=== PATIENT | female | born 1995 | race Caucasian/White ===

== ENCOUNTER 2022-11-03 14:40 | Emergency (ER) | payer OTHER, SELFPAY ==
--- NOTE | ~2022-11-03 | XR_ITS ---
XR ankle RT min 3V DATE: 11/03/2022 16:01 INDICATION: Fall downstairs 9 days ago. Anterior bruising TECHNIQUE: 4 views COMPARISON: None FINDINGS: No fracture or dislocation of the ankle or disruption of the ankle mortise. No periosteal r eaction or bone destruction of the right ankle is detected. IMPRESSION: No fracture or dislocation of the ankle is detected Reviewed, dictated and finalized at location A.
--- NOTE | ~2022-11-03 | XR_ITS ---
XR tibia fibula RT 2V DATE: 11/03/2022 16:01 INDICATION: Fell down stairs 9 days ago. Anterior bruising TECHNIQUE: AP and lateral views of tibia and fibula COMPARISON: None FINDINGS: No fracture or dislocation, periosteal reaction or bone destruction. Normal alignment at th e knee and ankle joints. IMPRESSION: Negative Reviewed, dictated and finalized at location A. IMPRESSION: Negative
[2022-11-03 15:06] VITALS: BP 136/77; PULSE 73; RESP 16; TEMP 36.4; O2SAT 100
[2022-11-03 15:08] VITALS: BP 136/77; PULSE 73; RESP 16; TEMP 36.4; O2SAT 100
--- NOTE | 2022-11-03 15:48 | ED.LOWEXIN ---
HPI - Extremity Injury (Lower) General Chief Complaint: Extremity Injury, Lower Stated Complaint: injured right leg from fall Time Seen by Provider: 11/03/22 15:41 Source: patient and RN notes reviewed Mode of arrival: ambulatory Limitations: no limitations History of Present Illness HPI Narrative: Patient presents today with an injury to her right leg. Nine days ago she slipped and fell forward down some stairs injuring the anterior portion of both legs. States the worst injuries to her right ankle and genao. Denies numbness or tingling. She has been elevating and taking [employer] with mild relief. Currently rates her pain 5/10. Related Data Home Medications Medication Instructions Recorded Confirmed levonorgestrel 21 mcg/24 hours (8 1 device intrauterine ONCE 11/03/22 11/03/22 yrs) 52 mg intrauterine device (Mirena) paroxetine HCl 40 mg tablet mg PO 11/03/22 Allergies Allergy/AdvReac Type Severity Reaction Status Date / Time fluticasone Allergy Unknown Verified 11/03/22 15:07 [From Advair Diskus] salmeterol Allergy Unknown Verified 11/03/22 15:07 [From Advair Diskus] Review of Systems Review of Systems: CONSTITUTIONAL: Denies body aches, fever, chills, or sweats. EYES: Denies visual changes, redness, or discharge. ENT: Denies rhinorrhea, congestion, sore throat, or otalgia. CARDIOVASCULAR: Denies chest pain, palpitations, or edema. RESPIRATORY: Denies cough or dyspnea. GASTROINTESTINAL: Denies abdominal pain, nausea, vomiting, or diarrhea. GENITOURINARY: Denies dysuria or hematuria. SKIN: Denies rash, itching, or wounds. MUSCULOSKELETAL: Denies back pain. + right lower leg and ankle pain NEUROLOGIC: Denies headache, numbness, tingling, or weakness. PSYCH: Denies depression or anxiety. PMFSH Comments At time of signature, I have reviewed and agree with nursing past medical, surgical, social and family history unless otherwise noted. Please see nursing chart for further information. There is no relevant family history pertinent to the presenting complaint Exam Narrative: GENERAL: Well-appearing, well-nourished, and in no acute distress. HEAD: Normocephalic, atraumatic. EYES: EOMI. No redness or drainage. Conjunctivae normal. ENT: Mucous membranes pink and moist. NECK: Normal AROM. CHEST: No respiratory distress. EXTREMITIES: Right leg: Scattered ecchymosis along the anterior genao and ankle. Tenderness to the mid genao with mild edema. Moderate swelling about the ankle. Tenderness medially, laterally, and anteriorly about the ankle. No tenderness to the foot. Distal sensation intact. Capillary refill normal. Pedal pulse normal. Full AROM of the ankle with some mild increased pain. Scattered ecchymosis about the anterior left knee and lower leg as well. No swelling about the left leg. SKIN: Warm, dry, no rash. Capillary refill normal. Normal skin turgor. NEURO: No focal deficits. Alert and oriented x3. Gait steady. PSYCH: Normal affect. No signs of depression or anxiety. Course Course Level of Care: Express Care Visit Vital Signs Vital signs: Vital Signs Temperature 97.5 F L 11/03/22 15:06 Pulse Rate 73 11/03/22 15:06 Respiratory Rate 16 11/03/22 15:06 Blood Pressure 136/77 11/03/22 15:06 Pulse Oximetry 100 11/03/22 15:06 Oxygen Delivery Room Air 11/03/22 15:06 Temperature 97.5 F L 11/03/22 15:08 Pulse Rate 73 11/03/22 15:08 Respiratory Rate 16 11/03/22 15:08 Blood Pressure 136/77 11/03/22 15:08 Pulse Oximetry 100 11/03/22 15:08 Oxygen Delivery Room Air 11/03/22 15:08 Reviewed. Pt has been instructed to follow up with her PCP regarding her elevated blood pressure today. MDM - Extremity Injury (Lower) [facility] Narrative Medical decision making narrative: X-rays are negative. Exam consistent with ankle sprain and multiple to contusions. No further testing or prescription medications indicated at this aly
== END 2022-11-03 16:20 | disposition home or self-care (01) ==
PROVIDERS: Emergency Provider Nurse Practitioner
DX: S93.401A Sprain of unspecified ligament of right ankle, initial encounter (principal); S80.11XA Contusion of right lower leg, initial encounter; Z79.899 Other long term (current) drug therapy; W01.0XXA Fall on same level from slipping, tripping and stumbling without subsequent striking against object, initial encounter
CPT/HCPCS: 73590; 73610; 99204; G0463